=== PATIENT | female | born 1970 | race Caucasian/White ===

== ENCOUNTER → 2016-05-07 | Outpatient (REF) | payer OTHER ==
[~2016-05-07] MED LIST: ANUS25SU PR; DICY10IN2 IM; IRON325T PO; LEVO100T5 PO; PANT40TA2 PO
== END ==
LOC: M LAB REF 09:47
PROVIDERS: ATTEND Physician Assistant Medical
DX: K51.20 Ulcerative (chronic) proctitis without complications (principal)

== ENCOUNTER → 2018-06-28 | Outpatient (REF) | payer OTHER ==
[~2018-06-28] MED LIST changes: -PANT40TA2 PO; +PANT40TA3 PO
[2018-06-28 12:56] LABS: FOLLICLE STIMULATING HORMONE 5.9 mIU/mL; LUTEINIZING HORMONE 4.7 mIU/mL
== END ==
LOC: M LAB REF 12:20
PROVIDERS: ATTEND Nurse Practitioner Adult Health
DX: N91.2 Amenorrhea, unspecified (principal)

== ENCOUNTER → 2020-04-09 | Outpatient (CLI) | payer SELFPAY ==
[~2020-04-09] MED LIST changes: +PANT40TA29 PO; -PANT40TA3 PO
== END ==
LOC: M LABSMTC 12:00
PROVIDERS: ATTEND Pediatrics
DX: Z11.59 Encounter for screening for other viral diseases (principal)

== ENCOUNTER → 2021-06-26 | Outpatient (CLI) | payer OTHER | LOC: M WUC 10:18 | PROVIDERS: ATTEND Physician Assistant | DX: S13.4XXA Sprain of ligaments of cervical spine, initial encounter (principal); M47.812 Spondylosis without myelopathy or radiculopathy, cervical region; X58.XXXA Exposure to other specified factors, initial encounter; Y92.9 Unspecified place or not applicable; Y93.9 Activity, unspecified; Y99.9 Unspecified external cause status ==

== ENCOUNTER → 2021-07-16 | Outpatient (REF) | payer OTHER ==
[2021-07-16 14:18] LABS: APPEARANCE, URINE CLEAR (CLEAR); BACTERIA, URINE AUTO NEGATIVE (NEGATIVE); BILIRUBIN, URINE AUTO NEGATIVE (NEGATIVE); BLOOD, URINE BLOOD 1+ (NEGATIVE); COLOR, URINE YELLOW (YELLOW); GLUCOSE, URINE (UA) AUTO NEGATIVE (NEGATIVE); KETONE, URINE AUTO NEGATIVE (NEGATIVE); LEUKOCYTE ESTERASE, URINE AUTO TRACE (NEGATIVE); NITRITE, URINE AUTO NEGATIVE (NEGATIVE); PROTEIN, URINE AUTO NEGATIVE (NEGATIVE); RBC, URINE AUTO 2 /HPF (0-3); SPECIFIC GRAVITY URINE AUTO 1.008 (1.002-1.035); SQUAMOUS EPITHELIAL CELL UR AU 3 /HPF (0-6); UROBILINOGEN, URINE AUTO 0.2 mg/dL (0.0-2.0); WBC, URINE AUTO 2 /HPF (0-3)
== END ==
LOC: M WUC 13:00
PROVIDERS: ATTEND Physician Assistant
DX: R35.0 Frequency of micturition (principal)

== ENCOUNTER → 2021-12-24 | Outpatient (CLI) | payer OTHER | LOC: M WHC 08:08 | PROVIDERS: ATTEND Pediatrics | DX: R92.2 Inconclusive mammogram (principal) | CPT/HCPCS: 77065; G0279 ==

== ENCOUNTER → 2022-02-12 | Outpatient (REF) | payer OTHER | LOC: M LAB REF 16:36 | PROVIDERS: ATTEND Pediatrics | DX: E03.9 Hypothyroidism, unspecified (principal); R73.03 Prediabetes ==

== ENCOUNTER → 2022-07-27 | Outpatient (REF) | payer OTHER ==
[2022-07-27 17:31] LABS: HEMOGLOBIN A1c 5.7 % (4.0-6.0)
[2022-07-27 17:41] LABS: ALBUMIN 3.7 G/DL (3.2-5.2); ALKALINE PHOSPHATASE 87 U/L (46-116); ALT/SGPT 37 U/L (7.0-40); AST/SGOT 14 U/L (<34); BILIRUBIN,TOTAL 0.3 MG/DL (0.3-1.2); BLOOD UREA NITROGEN 13 MG/DL (9-23); CALCIUM LEVEL 8.9 MG/DL (8.5-10.1); CARBON DIOXIDE LEVEL 28 MMOL/L (20-31); CHLORIDE LEVEL 108 MMOL/L (98-107); CHOLESTEROL LEVEL 180 MG/DL (<200); CHOLESTEROL RISK RATIO 3.52 (<5); CREATININE FOR GFR 0.71 MG/DL (0.55-1.30); GLOMERULAR FILTRATION RATE > 60.0 (>51); GLUCOSE, FASTING 103 MG/DL (60-100); HDL CHOLESTEROL 51.1 MG/DL (>40); LDL CHOLESTEROL 96.9 MG/DL (<100); NON-HDL-C 128.9 MG/DL; POTASSIUM SERUM 3.6 MMOL/L (3.5-5.1); SODIUM LEVEL 141 MMOL/L (136-145); THYROID STIMULATING HORMONE 0.107 uIU/ML (0.55-4.78); TOTAL PROTEIN 6.6 G/DL (5.7-8.2); TRIGLYCERIDES LEVEL 160 MG/DL (<150)
== END ==
LOC: M LAB REF 16:48
PROVIDERS: ATTEND Pediatrics
DX: R73.03 Prediabetes (principal); E66.01 Morbid (severe) obesity due to excess calories; E03.9 Hypothyroidism, unspecified; R74.01 Elevation of levels of liver transaminase levels

== ENCOUNTER → 2022-10-26 | Outpatient (REF) | payer OTHER | LOC: M LAB REF 20:13 | PROVIDERS: ATTEND Pediatrics | DX: E03.9 Hypothyroidism, unspecified (principal) ==

== ENCOUNTER → 2023-04-25 | Outpatient (REF) | payer OTHER ==
[2023-04-25 14:24] LABS: ALBUMIN 3.9 G/DL (3.2-5.2); ALKALINE PHOSPHATASE 80 U/L (46-116); ALT/SGPT 47 U/L (7.0-40); AST/SGOT 26 U/L (<34); BILIRUBIN,TOTAL 0.4 MG/DL (0.3-1.2); BLOOD UREA NITROGEN 12 MG/DL (9-23); CALCIUM LEVEL 9.4 MG/DL (8.5-10.1); CARBON DIOXIDE LEVEL 30 MMOL/L (20-31); CHLORIDE LEVEL 107 MMOL/L (98-107); CREATININE FOR GFR 0.59 MG/DL (0.55-1.30); GLOMERULAR FILTRATION RATE > 60.0 (>51); GLUCOSE, FASTING 89 MG/DL (60-100); POTASSIUM SERUM 4.3 MMOL/L (3.5-5.1); SODIUM LEVEL 141 MMOL/L (136-145); TOTAL PROTEIN 7.1 G/DL (5.7-8.2)
[2023-04-25 14:27] LABS: THYROID STIMULATING HORMONE 0.171 uIU/ML (0.55-4.78)
[2023-04-25 14:45] LABS: HEMOGLOBIN A1c 5.8 % (4.0-6.0)
== END ==
LOC: M LAB REF 12:11
PROVIDERS: ATTEND Pediatrics
DX: E66.01 Morbid (severe) obesity due to excess calories (principal); E03.9 Hypothyroidism, unspecified; K21.9 Gastro-esophageal reflux disease without esophagitis

== ENCOUNTER → 2023-07-04 | Outpatient (CLI) | payer OTHER | LOC: M WHC 07:48 | PROVIDERS: ATTEND Pediatrics | DX: Z12.31 Encounter for screening mammogram for malignant neoplasm of breast (principal); Z13.820 Encounter for screening for osteoporosis; M81.0 Age-related osteoporosis without current pathological fracture ==

== ENCOUNTER → 2023-07-11 | Outpatient (REF) | payer OTHER | LOC: M SFHCWAGY 17:32 | PROVIDERS: ATTEND Nurse Practitioner Family | DX: Z11.51 Encounter for screening for human papillomavirus (HPV) (principal) | CPT/HCPCS: 87624; G0123 ==

== ENCOUNTER → 2023-08-02 | Outpatient (REF) | payer OTHER ==
[2023-08-02 12:24] LABS: APPEARANCE, URINE CLEAR (CLEAR); BACTERIA, URINE AUTO NEGATIVE (NEGATIVE); BILIRUBIN, URINE AUTO NEGATIVE (NEGATIVE); BLOOD, URINE BLOOD 1+ (NEGATIVE); COLOR, URINE STRAW (YELLOW); GLUCOSE, URINE (UA) AUTO NEGATIVE (NEGATIVE); KETONE, URINE AUTO NEGATIVE (NEGATIVE); LEUKOCYTE ESTERASE, URINE AUTO NEGATIVE (NEGATIVE); NITRITE, URINE AUTO NEGATIVE (NEGATIVE); PROTEIN, URINE AUTO NEGATIVE (NEGATIVE); RBC, URINE AUTO 1 /HPF (0-3); SPECIFIC GRAVITY URINE AUTO 1.009 (1.002-1.035); SQUAMOUS EPITHELIAL CELL UR AU 1 /HPF (0-6); UROBILINOGEN, URINE AUTO 0.2 mg/dL (0.0-2.0); WBC, URINE AUTO 1 /HPF (0-3)
[2023-08-02 15:41] LABS: HEMOGLOBIN A1c 5.5 % (4.0-6.0)
== END ==
LOC: M LAB REF 11:44
PROVIDERS: ATTEND Pediatrics
DX: R31.29 Other microscopic hematuria (principal); E66.01 Morbid (severe) obesity due to excess calories; E03.9 Hypothyroidism, unspecified

== ENCOUNTER → 2024-05-14 | Outpatient (REF) | payer OTHER ==
[2024-05-14 15:04] LABS: ALBUMIN 3.8 G/DL (3.2-5.2); ALKALINE PHOSPHATASE 77 U/L (35-104); ALT/SGPT 36 U/L (7.0-40); AST/SGOT 27 U/L (<34); BILIRUBIN,TOTAL 0.4 MG/DL (0.3-1.2); BLOOD UREA NITROGEN 13 MG/DL (9-23); CALCIUM LEVEL 9.7 MG/DL (8.5-10.1); CARBON DIOXIDE LEVEL 27 MMOL/L (20-31); CHLORIDE LEVEL 108 MMOL/L (98-107); GLOMERULAR FILTRATION RATE > 60.0 (>51); GLUCOSE, FASTING 99 MG/DL (60-100); POTASSIUM SERUM 4.5 MMOL/L (3.5-5.1); SODIUM LEVEL 143 MMOL/L (136-145); THYROID STIMULATING HORMONE 0.984 uIU/ML (0.55-4.78); TOTAL 25(OH) VITAMIN D 26.6 NG/ML (20.0-100.0); TOTAL PROTEIN 7.1 G/DL (5.7-8.2)
[2024-05-14 15:36] LABS: HEMOGLOBIN A1c 5.7 % (4.0-6.0)
== END ==
LOC: M LAB REF 12:49
PROVIDERS: ATTEND Pediatrics
DX: M81.0 Age-related osteoporosis without current pathological fracture (principal); E03.9 Hypothyroidism, unspecified; R73.03 Prediabetes

== ENCOUNTER 2024-08-13 11:39 | Day surgery (SDC) | payer OTHER ==
[~2024-08-13] VITALS: Ht 152.4 cm; Wt 88.5 kg
[~2024-08-13 11:39] MED LIST changes: +GLYCOPYRROLATE INJ 0.2 MG/ML 2 ML VIAL As Ordered ONE; +LIDOCAINE 2% 100MG/5ML SDV (FOR ANES.) As Ordered ONE; +OMEP-173 PO; +propofoL 200 MG/20 ML VIAL As Ordered ONE
[2024-08-13 13:37] VITALS: BP 137/91; O2SAT 96
[2024-08-13] MEDS: ACETAMINOPHEN 500 MG TAB PO PRN (13:47)
== END 2024-08-13 14:00 | disposition home or self-care (01) ==
LOC: M OPP 11:39
PROVIDERS: ATTEND Internal Medicine Gastroenterology
DX: D12.0 Benign neoplasm of cecum (principal); K64.8 Other hemorrhoids; K92.1 Melena; Z87.19 Personal history of other diseases of the digestive system; K44.9 Diaphragmatic hernia without obstruction or gangrene; Z80.0 Family history of malignant neoplasm of digestive organs; Z79.899 Other long term (current) drug therapy; Z87.891 Personal history of nicotine dependence
CPT/HCPCS: 43235; 45380; 88305; J1596

== ENCOUNTER → 2024-11-13 | Outpatient (REF) | payer OTHER ==
[~2024-11-13] MED LIST changes: -GLYCOPYRROLATE INJ 0.2 MG/ML 2 ML VIAL As Ordered ONE; -LIDOCAINE 2% 100MG/5ML SDV (FOR ANES.) As Ordered ONE; -propofoL 200 MG/20 ML VIAL As Ordered ONE
== END ==
LOC: M SFHCWAGY 12:54
PROVIDERS: ATTEND Nurse Practitioner Family
DX: N95.0 Postmenopausal bleeding (principal)